=== PATIENT | female | born 1960 | race Caucasian/White ===

== ENCOUNTER 2019-01-05 17:07 | Emergency (ER) | payer MEDICARE, OTHER ==
[~2019-01-05] VITALS: Ht 165.1 cm; Wt 99.8 kg
[~2019-01-05 17:07] MED LIST: ASPIRIN325 PO; CELEBREX100 MG/1 C PO; COLACE100 MG PO; COUMADIN; COUMADIN5 MG PO; COUMADIN7.5 MG PO; CYMBALTA60 MG PO; GABAPENTIN; NEURONTIN 300300 M1 PO; NORCO 5-325 TA1 EACH PO; OXYCODONE HCL 55 MG PO; PERCOCET PO; RESTORIL7.5 MG; TRAMADOL 50 MG50 MG PO; XARELTO20 MG PO
[2019-01-05] MEDS ORDERED: LEXAPRO 10 MG T10 M2 PO (17:29)
[2019-01-05 18:09] LABS: ABSOLUTE BASOPHILS 0.1 thou/uL (0.0-0.2); ABSOLUTE EOSINOPHILS 0.1 thou/uL (0.0-0.7); ABSOLUTE LYMPHOCYTES 2.1 thou/uL (0.8-5.3); ABSOLUTE MONOCYTES 0.5 thou/uL (0.0-1.2); ABSOLUTE NEUTROPHILS 3.5 thou/uL (1.6-8.1); BASOPHILS 0.9 %; EOSINOPHILS 1.5 %; HEMATOCRIT 46.3 % (37.0-47.0); HEMOGLOBIN 15.4 gm/dL (12.0-15.0); LYMPHOCYTES 33.7 %; MCH 31.4 pg (26.0-34.0); MCHC 33.2 g/dL (28.0-37.0); MCV 94.6 fL (80.0-100.0); MONOCYTES 7.7 %; MPV 8.5 fl. (7.2-11.1); NUCLEATED RBCS 0 /100WBC; PLATELET COUNT* 322 thou/uL (150-400); POLYS 56.2 %; RDW-CV 13.9 % (10.5-14.5); WBC 6.2 thou/uL (4.0-11.0)
[2019-01-05 18:17] LABS: APTT 32.7 Seconds (25.0-31.3); INR 1.2; PROTIME 12.1 Seconds (9.20-11.50)
[2019-01-05 18:25] LABS: ANION GAP 7 mmol/L (7-16); BUN 10 mg/dL (7-18); CALCIUM 9.1 mg/dL (8.5-10.1); CHLORIDE 105 mmol/L (98-107); CO2 29 mmol/L (21-32); CREATININE 0.7 mg/dL (0.6-1.3); GLUCOSE 103 mg/dL (70-99); POTASSIUM 3.5 mmol/L (3.5-5.1); SODIUM 141 mmol/L (136-145); TROPONIN-I LEVEL <0.06 ng/mL (<0.06)
[2019-01-05 18:26] LABS: ALBUMIN 3.8 g/dL (3.4-5.0); ALKALINE PHOSPHATASE 90 U/L (46-116); LIPASE 199 U/L (73-393); NT-PRO BRAIN NAT PEPTIDE 209 pg/mL (<300); SGOT 14 U/L (15-37); SGPT 18 U/L (30-65); TOTAL BILIRUBIN 0.5 mg/dL (<0.1-1.0); TOTAL PROTEIN 7.7 g/dL (6.4-8.2)
[2019-01-05 18:41] LABS: URINE BILIRUBIN NEGATIVE (Negative); URINE BLOOD TRACE (Negative); URINE CLARITY CLEAR; URINE COLOR YELLOW; URINE GLUCOSE-RANDOM NEGATIVE (Negative); URINE KETONES NEGATIVE (Negative); URINE LEUKOCYTES-REFLEX TRACE (Negative); URINE PROTEIN NEGATIVE (Negative); URINE SPECIFIC GRAVITY >= 1.030 (1.005-1.030); URINE UROBILINOGEN 0.2 E.U./dl (0.2-1.0)
[2019-01-05 18:43] LABS: URINE NITRITE-REFLEX POSITIVE (Negative)
[2019-01-05 18:57] LABS: CASTS None Seen /LPF (None Seen); CRYSTALS None Seen /LPF (None Seen); SQUAMOUS 4-10 Moderate /LPF (0-3); URINE RBC 0-2 Rare /HPF (0-2); URINE WBC-REFLEX 6-15 Few /HPF (0-5)
[2019-01-05] MEDS ORDERED: KEFLEX500 M1 PO (20:52)
[2019-01-05] MEDS ORDERED: NORCO 5-325 TA1 EACH PO (20:52)
[2019-01-05 21:22] VITALS: BP 143/78
--- NOTE | 2019-01-06 13:19 | EKG ---
[place] [address] ELECTROCARDIOGRAM REPORT Name: KARIS SALDANA I Room: [facility]#: [id number] Admission: 01/05/19 Attend Phys: Discharge: 01/05/19 Date of : 58 Report #: [id number] THIS REPORT FOR: //name// [facility] ED Test Date: 2019-01-05 Test Time: 18:06:10 Pat Name: KARIS ASLDANA Department: Room: Gender: F Wagon Driver: NITIN : 1960 Requested By: Lynette Carolina Order Number: [id number] MD: Avel Meeks Measurements Intervals [place] Rate: 66 P: 45 MN: 160 QRS: 49 QRSD: 106 T: 22 QT: 417 QTc: 437 Interpretive Statements Sinus rhythm RSR' in V1 or V2, right VCD or RVH Compared to ECG 02/27/2014 11:05:43 Right ventricular hypertrophy now present RSR' in V1 or V2 now present T-wave abnormality no longer present Electronically Signed On 01-06-2019 13:19:00 PURCHASE REQUEST EDITOR by Avel Meeks [email or web address] <ELECTRONICALLY SIGNED> By: Avel Meeks MD, [facility] 01/06/19 1319 1806 1806 Avel Meeks MD, [facility] /EPI
== END 2019-01-05 21:25 | disposition home or self-care (01) ==
LOC: M.ERS 17:07
PROVIDERS: Physician Assistant
DX: I26.99 Other pulmonary embolism without acute cor pulmonale (principal); N39.0 Urinary tract infection, site not specified; M19.90 Unspecified osteoarthritis, unspecified site; G62.9 Polyneuropathy, unspecified; Z90.49 Acquired absence of other specified parts of digestive tract; Z90.711 Acquired absence of uterus with remaining cervical stump